=== PATIENT | female | born 1990 | race Caucasian/White ===

== ENCOUNTER 2016-08-22 13:00 | Inpatient (IN) | payer OTHER ==
--- NOTE | ~2016-08-22 | DS ---
Unit #: [id number] #: [id number] Patient: DANISH AGUIRRE [id number] [facility] [address] [place] [address] [id number] MR#: [id number] NAME: DANISH AGUIRRE ROOM: [facility] Age: 26 Sex: F Admission Date: 08/22/2016 : 1990 Discharge Date: 08/24/2016 Attending Physician: Peter Ellsworth M.D. Primary Care Physician: Primary Care Physician No DISCHARGE SUMMARY REASON FOR ADMISSION Addiction. DIAGNOSTIC STUDIES LABORATORY RESULTS: Urine toxicology was positive for benzodiazepine, amphetamine, and marijuana and also AST 295, ALT 232. Glucose 122. HOSPITAL COURSE The patient was admitted to inpatient unit on 08/22/2016 and discharged on 08/24/2016. The patient was treated with detox protocol and detox monitoring, chemical dependency group, structured milieu, psychoeducation. The patient was responsive to inpatient treatment. The patient was on numerous medication, but the last time she filled medication was 2 months ago. Therefore, no previous medication was started. The patient was somewhat drowsy and dizzy. On the medication, therefore decided not to start any medication at this time. The patient was on prazosin, olanzapine, gabapentin, Geodon, Latuda, sertraline, Topamax which she filled almost 2 months ago. The patient was not started on those medication and detox was completed. The patient received maximum benefit. Did not show any withdrawal symptom. Vital signs, stable. Subsequently, the patient was discharged with a plan to follow up in outpatient basis. The patient was not suicidal or homicidal, and advised to further adjustment of medication to be done on the outpatient basis. DISCHARGE MEDICATIONS None. DISCHARGE DIAGNOSES Psychiatric: Sedative hypnotic use disorder, severe, F13.20; amphetamine use disorder, severe, F15.20; cannabis abuse, moderate to severe, F12.20; mood disorder, not otherwise specified, F32.9. Secondary diagnosis: Deferred. Medical diagnosis: None. Stressors: Psychosocial stressors. DISCHARGE INSTRUCTIONS The patient to follow up in outpatient basis as per social welfare clerk. CONDITION ON DISCHARGE The patient was somewhat irritable, mad, angry but denied any suicidal or Unit #: [id number] #: [id number] Patient: DANISH AGUIRRE homicidal ideation. PROGNOSIS Guarded. DIET AND ACTIVITY As tolerated. The patient demanded prescription of medication, but advised that at this time, we will not give any prescription of her psychotropic medication and that needs to be decided on the outpatient basis when she comes for outpatient program or with the other psychiatrist. Dictated by... Amirah Xie/rah TD: 08/24/2016 19:56 JOB #: [id number] DISCHARGE SUMMARY Page 1 of 1 X Peter Ellsworth MD X DISCHARGE SUMMARY
--- NOTE | ~2016-08-22 | HP ---
Unit #: [id number] #: [id number] Patient: DANISH AGUIRRE [id number] [place] [address] [id number] I MR#: [id number] NAME: DANISH AGUIRRE ROOM: P212 Age: 26 Sex: F Admission Date: 08/22/2016 : 1990 Attending Physician: Peter Ellsworth M.D. Admitting Physician: Peter Ellsworth M.D. Primary Care Physician: Primary Care Physician No HISTORY AND PHYSICAL HISTORY OF PRESENT ILLNESS Danish is a 26 year old admitted to [address] [place] [address] because of her polysubstance abuse which includes IV heroin and benzodiazepines. PAST MEDICAL HISTORY 1. Long history of polysubstance abuse to include IV heroin. 2. Hepatitis C. 3. History of kidney stones. PAST SURGICAL HISTORY x2. ALLERGIES Penicillin. SOCIAL HISTORY Smokes one pack per day. Denies alcohol. Admits to a long history of poly illicit substance abuse to include IV heroin. FAMILY HISTORY Medically noncontributory. REVIEW OF SYSTEMS CONSTITUTIONAL: No fever or chills. HEENT: Denies any sore throat, ear pain or runny nose. CARDIOVASCULAR: Denies chest pain, irregular heart rhythm or palpitations. CHEST: Denies shortness of breath or cough. No hemoptysis. GASTROINTESTINAL: Denies nausea, vomiting, diarrhea or chronic constipation. ENDOCRINE: Denies history of increased thirst or urination. No recent significant weight loss or gain. GENITOURINARY: Denies dysuria, frequency, or hematuria. SKIN: Denies any rashes. HEMATOLOGIC: Denies history of increased bleeding or bruising. MUSCULOSKELETAL: Denies any hot, swollen joints. No generalized muscle pain. NEUROLOGIC: Denies problems with vision or speech. No frequent, severe headaches. No numbness, tingling or weakness in any extremities. Denies loss of bladder or bowel control. CURRENT MEDICATIONS Detox protocol Unit #: [id number] #: [id number] Patient: DANISH AGUIRRE PHYSICAL EXAMINATION GENERAL: Alert, petite, in no apparent distress. VITAL SIGNS: Blood pressure 126/82, heart rate 84, respirations 16, temperature 98.6. SKIN: Warm and dry without rash or lesion. HEENT: Normocephalic. TMs not viewed. Oral and nasal passages clear. Conjunctivae clear. Pupils equal, round and reactive to light and accommodation. Extraocular movements intact. NECK: Supple without lymphadenopathy or thyromegaly. HEART: Regular rate and rhythm without murmur. LUNGS: Clear. ABDOMEN: Soft, nontender. : Not done. EXTREMITIES: No evidence of cyanosis, clubbing or edema. Moves all extremities without focal deficit. NEUROLOGICAL: Grossly within normal limits. Cranial Nerves: II: Visual landry are intact. III, IV AND : Extraocular movements are intact. Pupils are equal, round and reactive to light. V: Facial sensation is grossly normal. VII: Facial movements and expression are normal. VIII: Auditory acuity grossly intact. IX, X: Uvula is midline. Phonation is normal. XI: Patient shrugs shoulders and turns head normally. XII: Tongue protrudes in the midline. Sensory and Motor Function: Sensory and motor sensation is grossly normal. Motor: moves all extremities well. Coordination: Gait is normal. Deep Tendon Reflexes: Intact. IMPRESSION Psychiatric admission RECOMMENDATIONS PSYCHIATRIC: Per psychiatrist. MEDICAL: I see no contraindications to participating in facility's activities. MEDICAL PROGNOSIS Good. MEDICAL CONDITION Stable. Dictated by... Julienne Wisdom PAzizaAFernanda. for Amirah Ibrahim/gloria TD: 08/23/2016 00:41 JOB #: [id number] Unit #: [id number] #: [id number] Patient: DANISH AGUIRRE HISTORY AND PHYSICAL Page 1 of 1 X Julienne Wisdom X HISTORY AND PHYSICAL
--- NOTE | ~2016-08-22 | PA ---
Unit #: [id number] #: [id number] Patient: DANISH AGUIRRE [id number] [facility] [address] [place] [address] [id number] I MR#: [id number] NAME: DANISH AGUIRRE ROOM: [facility] Age: 26 Sex: F Admission Date: 08/22/2016 : 1990 Date of Assessment: 08/23/2016 Attending Physician: Peter Ellsworth M.D. Admitting Physician: Peter Ellsworth M.D. Primary Care Physician: Primary Care Physician No PSYCHIATRIC ASSESSMENT INFORMANTS The patient's reliability fair; chart reliability, good. CHIEF COMPLAINT Addiction. HISTORY OF PRESENT ILLNESS Ms. Woods is a 26-year-old female, presented with the above-mentioned complaint. The patient has a history of [facility] , [facility]; inpatient rehab in 2002 to 2005, 26 times. The patient has a poor support system. Reported substance abuse and increased depressive symptom. The patient reported that using 1 g of heroin. The patient reported IV with the last use a day ago. The patient reported using 10 to 15 benzo daily. The patient reports having significant withdrawal symptom. COWS score 15. The patient reported having feeling of hopelessness and worthlessness, but denied any suicidal or homicidal ideation. Denied any psychotic symptom. Needing inpatient admission at this time for psychiatric stabilization. PAST PSYCHIATRIC HISTORY Remarkable for history of previous treatment in [place], details unknown at this time. FAMILY HISTORY AND SOCIAL HISTORY The patient has a poor support system. No history of abuse. History of alcoholism in father, bipolar disorder in grandmother, major depression in grandfather, depression in mother, schizophrenia in aunt. MEDICAL HISTORY Unremarkable for any chronic medical condition. Musculoskeletal; muscle strength and tone, no atrophy or abnormal movement. Gait normal. MEDICATION HISTORY The patient reports currently on prazosin 6 mg at bedtime, olanzapine 30 mg b.i.d., gabapentin 600 mg q.i.d., Geodon 40 mg daily, Latuda 60 mg daily, clonidine 0.1 mg at bedtime. According to the pharmacy, the patient has not filled these medication in the last 2 months, but has been abusing benzodiazepine. ALLERGIES No known drug allergies. SUBSTANCE ABUSE HISTORY Unit #: [id number] #: [id number] Patient: DANISH AGUIRRE Tobacco use, age of onset 11; marijuana, age of onset 10; opioid, age of onset 18; benzodiazepine, age of onset 12. The patient reported no blackout, HIV, hepatitis, or IV drug use. History of withdrawal symptoms such as abdominal cramping, muscle cramping, diarrhea, diaphoresis, headache, nervousness, sleep problem, tremor. MENTAL STATUS EXAMINATION CONSTITUTIONAL: Measurement of vital signs; temperature 97.3, pulse 111, respirations 17, blood pressure 115/75. Height 5 feet and weight 120 pounds. GENERAL APPEARANCE: The patient dressed casually. The patient did not show any facial deformity. MUSCULOSKELETAL: Please see above. PSYCHIATRIC EXAMINATION Description of speech; regular rate, normal volume, normal articulation. Description of thought process, goal directed. Description of association, intact. Description of abnormal psychotic thinking; the patient denied any hallucination or delusions, but somewhat guarded. Denied any suicidal or homicidal ideation. Description of the patient's judgment; concerning everyday activity, poor. Social situation, poor. Concerning psychiatric condition, poor. Complete mental status examination; oriented in time, place, and person. Recent and remote memory, fair. Attention span and concentration, fair. Language, able to name object and repeat phrases. Fund of knowledge, aware of current event and passive vocabulary intact. Mood and affect, sad and dysphoric. Insight and judgment, fair to poor. ASSETS AND LIABILITIES Assets, the patient articulate, able to take care of her ADL. Liability; history of depression, substance abuse. ADMITTING DIAGNOSES Psychiatric: Opioid use disorder, severe, F11.20; sedative hypnotic use disorder, F13.20; mood disorder, not otherwise specified, F32.9. Secondary diagnosis: Deferred. Medical diagnosis: None. Stressors: Psychosocial stressors. PSYCHIATRIC PLAN AND TREATMENT GOAL 1. Advised to admit the patient on the inpatient unit. Provide safe, supportive, and structured environment. 2. Ordered labs; CBC, CMP, UA, and UDS. 3. test. 4. The patient to attend all the programing on the inpatient unit and detox protocol and detox monitoring. Advised to hold home medication at this time as the patient has not taken these medication on the last 2 months and currently having withdrawal symptoms. Once the patient is detox, then consider medication. Treatment goal to attain euthymic mood, gain insight into her problem, and learn coping skills. DISCHARGE PLAN Plan to stabilize the patient and consider followup in outpatient program. Unit #: [id number] #: [id number] Patient: DANISH AGUIRRE ESTIMATED LENGTH OF STAY 3 to 5 days. Dictated by... Amirah Xie/rah TD: 08/23/2016 23:22 JOB #: [id number] PSYCHIATRIC ASSESSMENT Page 1 of 1 X Peter Ellsworth MD X PSYCHIATRIC ASSESSMENT
[2016-08-23 09:31] LABS: BASOPHIL% 0.3 % (0-2.5); EOSINOPHIL# 0.2 X10e3 (0-0.7); HEMOGLOBIN 15.5 gm/dL (12.0-16.0); LYMPHOCYTE# 1.9 X10e3 (1.0-3.5); LYMPHOCYTE% 36.9 % (17.0-45.0); MEAN CELL VOLUME 89.4 FL (83-96); MEAN CORPUSCULAR HEMOGLOBIN 30.2 PG (28-34); MEAN CORPUSCULAR HGB CONC 33.7 g/dL (30-36); MEAN PLATELET VOLUME 8.8 FL (6.5-11.5); MONOCYTE# 0.4 X10e3 (0-1.0); MONOCYTE% 8.1 % (3.0-12.0); NEUTROPHIL# 2.6 X10e3 (1.5-7.1); NEUTROPHIL% 51.7 % (40-75); PLATELET COUNT 187 X10e3 (140-420); RED BLOOD COUNT 5.15 X10e (3.90-5.30); RED CELL DISTRIBUTION WIDTH 13.8 % (11.0-15.5); WHITE BLOOD COUNT 5.1 X10e3 (4.0-10.5)
[2016-08-23 09:47] LABS: DIFF IND NO
[2016-08-23 09:51] LABS: URINE APPEARANCE CLOUDY; URINE BLOOD NEG (NEG); URINE COLOR DK YELLOW; URINE GLUCOSE NEG (NEG); URINE KETONE TRACE (NEG); URINE LEUKOCYTE ESTERASE 2+ (NEG); URINE NITRATE NEG (NEG); URINE PH 8.5 (5-8); URINE PROTEIN TRACE (NEG); URINE SPECIFIC GRAVITY 1.022 (1.003-1.035)
[2016-08-23 09:54] LABS: URINE BACTERIA AUWI 1+ (NEGATIVE); URINE SQUAMOUS EPITHELIAL CELL FEW /[HPF]
[2016-08-23 10:00] LABS: URINE BILIRUBIN NEG (NEG)
[2016-08-23 10:18] LABS: AMPHETAMINE POS (NEG); BARBITURATES NEG (NEG); BENZODIAZEPINES POS (NEG); COCAINE NEG (NEG); MARIJUANA POS (NEG); OPIATES NEG (NEG); TRICYCLIC ANTIDEPRESSANTS NEG (NEG); U METHADONE NEG (NEG)
[2016-08-23 10:38] LABS: ALBUMIN SERUM 4.5 g/dL (3.5-5.0); BILIRUBIN,TOTAL 1.2 mg/dL (0.2-2.0); BUN/CREATININE RATIO 11.11; CALCIUM SERUM 10.3 mg/dL (8.4-10.2); CREATININE SERUM 0.9 mg/dL (0.6-1.4); GLOM FILT RATE Estimated 87.7 mL/min (>60); POTASSIUM 3.5 mmol/L (3.5-5.1)
== END 2016-08-24 09:42 | disposition home or self-care (01) | DRG 897 ==
LOC: P2S 15:57
PROVIDERS: Psychiatry & Neurology Psychiatry
PROC: HZ2ZZZZ Detoxification Services for Substance Abuse Treatment (ICD-10-PCS; principal; 2016-08-22)
DX: F11.20 Opioid dependence, uncomplicated (principal); F13.20 Sedative, hypnotic or anxiolytic dependence, uncomplicated; F39 Unspecified mood [affective] disorder; Z81.8 Family history of other mental and behavioral disorders; Z81.1 Family history of alcohol abuse and dependence; Z88.0 Allergy status to penicillin; Z87.442 Personal history of urinary calculi; F17.210 Nicotine dependence, cigarettes, uncomplicated; Z86.19 Personal history of other infectious and parasitic diseases
CPT/HCPCS: 80053; 80307; 81003; 85025

== ENCOUNTER 2016-10-10 16:46 | Inpatient (IN) | payer OTHER ==
[~2016-10-10] VITALS: Ht 152.4 cm; Wt 59.0 kg
--- NOTE | ~2016-10-10 | HP ---
Unit #: [id number] #: [id number] Patient: DANISH AGUIRRE [id number] [place] [address] [id number] I MR#: [id number] NAME: DANISH AGUIRRE ROOM: P209 Age: 26 Sex: F Admission Date: 10/10/2016 : 1990 Attending Physician: Peter Ellsworth M.D. Admitting Physician: Peter Ellsworth M.D. Primary Care Physician: Primary Care Physician No HISTORY AND PHYSICAL HISTORY OF PRESENT ILLNESS Danish is a 26 year old admitted to [address] [place] [address] because of her continued polysubstance abuse which includes IV heroin and benzodiazepines. She has had other admissions to this facility for treatment of the same. PAST MEDICAL HISTORY 1. Long history of polysubstance abuse to include IV heroin. 2. Hepatitis C. 3. History of kidney stones. PAST SURGICAL HISTORY x2. ALLERGIES Penicillin. SOCIAL HISTORY Smokes one pack per day. Denies alcohol. Admits to long history of poly-illicit substance abuse to include IV heroin. FAMILY HISTORY Medically noncontributory. REVIEW OF SYSTEMS CONSTITUTIONAL: No fever or chills. HEENT: Denies any sore throat, ear pain or runny nose. CARDIOVASCULAR: Denies chest pain, irregular heart rhythm or palpitations. CHEST: Denies shortness of breath or cough. No hemoptysis. GASTROINTESTINAL: Denies nausea, vomiting, diarrhea or chronic constipation. ENDOCRINE: Denies history of increased thirst or urination. No recent significant weight loss or gain. GENITOURINARY: Denies dysuria, frequency, or hematuria. SKIN: Denies any rashes. HEMATOLOGIC: Denies history of increased bleeding or bruising. MUSCULOSKELETAL: Denies any hot, swollen joints. No generalized muscle pain. NEUROLOGIC: Denies problems with vision or speech. No frequent, severe headaches. No numbness, tingling or weakness in any extremities. Denies loss of bladder or bowel control. CURRENT MEDICATIONS 1. Detox protocol. Unit #: [id number] #: [id number] Patient: DANISH AGUIRRE 2. Minipress 2 mg q.h.s. 3. Zyprexa 10 mg b.i.d. PHYSICAL EXAMINATION GENERAL: Alert, well nourished. No apparent distress. VITAL SIGNS: Blood pressure 110/66, heart rate 88, respirations 16, and temperature 98.6. WEIGHT: 130. HEIGHT: 5 feet 0 inches. SKIN: Warm and dry without rash or lesion. HEENT: Normocephalic. TMs not viewed. Oral and nasal passages clear. Conjunctivae clear. PERRLA. EOMs intact. NECK: Supple without lymphadenopathy or thyromegaly. HEART: Regular rate and rhythm without murmur. LUNGS: Clear. ABDOMEN: Soft, nontender. : Not done. EXTREMITIES: No evidence of cyanosis, clubbing or edema. Moves all without focal deficit. NEUROLOGICAL: Grossly within normal limits. Cranial Nerves: II: Visual landry are intact. III, IV AND : Extraocular movements are intact. Pupils are equal, round and reactive to light. V: Facial sensation is grossly normal. VII: Facial movements and expression are normal. VIII: Auditory acuity grossly intact. IX, X: Uvula is midline. Phonation is normal. XI: Patient shrugs shoulders and turns head normally. XII: Tongue protrudes in the midline. Sensory and Motor Function: Sensory and motor sensation is grossly normal. Motor: moves all extremities well. Coordination: Gait is normal. Deep Tendon Reflexes: Intact. IMPRESSION Psychiatric admission. RECOMMENDATIONS PSYCHIATRIC: Per psychiatrist. MEDICAL: I see no contraindication to participate in this facility's activities. MEDICAL PROGNOSIS Good. MEDICAL CONDITION Stable. Dictated by... Julienne Wisdom P.A.-C. for Amirah Ibrahim/sebas TD: 10/11/2016 12:41 JOB #: [id number] Unit #: [id number] #: [id number] Patient: DANISH AGUIRRE HISTORY AND PHYSICAL Page 1 of 1 X Julienne Wisdom HISTORY AND PHYSICAL
--- NOTE | ~2016-10-10 | PN ---
Unit #: [id number] #: [id number] Patient: DANISH AGUIRRE [id number] [facility] [address] [place] [address] [id number] MR#: [id number] NAME: DANISH AGUIRRE ROOM: P209 Age: 26 Sex: F Admission Date: 10/10/2016 : 1990 Attending Physician: Peter Ellsworth M.D. Admitting Physician: Peter Ellsworth M.D. Primary Care Physician: Primary Care Physician Pilar CHAPARRO PROGRESS NOTES DATE OF SERVICE 10/11/2016 DISCUSSION Ms. Woods is a 26-year-old female seen on 10/11/2016. The patient interviewed, chart reviewed. Obtained information from nursing staff. The patient reported that she was on Zyprexa and having a lot of problems and nightmares, trouble sleeping, mood lability, paranoia, withdrawal symptom. Complete Review of Systems: Unremarkable. MENTAL STATUS EXAMINATION General Appearance: The patient dressed casually. Attention span, concentration: Fair. The patient's vital signs: 98.5, 93, 20, 127/84. Attention span, concentration: Fair. Oriented in time, place, and person. Mood and affect labile. Sad, dysphoric, anxious. Thought process: Goal-directed. The patient reported suicidal ideation. Passive, guarded, withdrawn. Recent and remote memory: Poor. Insight and judgment: Poor. DIAGNOSES 1. Major depressive disorder, recurrent, severe. 2. Opiate use disorder, severe. 3. Sedative hypnotic use disorder, severe. ASSESSMENT/PLAN Advised to continue with current medication and therapeutic protocol. If needed, consider further adjustment of medication. Dictated by... Amirah Xie/sebas TD: 10/12/2016 11:45 JOB #: [id number] Unit #: [id number] #: [id number] Patient: DANISH AGUIRRE [facility] PROGRESS NOTES Page 1 of 1 X Peter Ellsworth MD PROGRESS NOTE
--- NOTE | ~2016-10-10 | DS ---
Unit #: [id number] #: [id number] Patient: DANISH AGUIRRE [id number] [facility] [address] [place] [address] [id number] I MR#: [id number] NAME: DANISH AGUIRRE ROOM: [facility] Age: 26 Sex: F Admission Date: 10/10/2016 : 1990 Discharge Date: 10/12/2016 Attending Physician: Peter Ellsworth M.D. Primary Care Physician: Primary Care Physician No DISCHARGE SUMMARY REASON FOR ADMISSION Depression, suicidal ideation, substance abuse. DIAGNOSTIC STUDIES LABORATORY RESULTS: Urine drug screen positive for benzodiazepine, marijuana. HOSPITAL COURSE The patient was admitted to inpatient unit on 10/10/2016 and discharged on 10/12/2016. The patient was treated with chemical dependency group, expressive therapy, medication management, psychoeducation, psychotherapy, structured milieu. The patient denied any suicidal ideation wanted to followup in outpatient program. Patient was subsequently discharged with a plan to followup in outpatient program. DISCHARGE MEDICATIONS 1. Minipress 2 mg daily for nightmares 2. Zyprexa 10 mg in the morning and 20 mg at bedtime for mood stabilization. 3. Cogentin 1 mg at bedtime for EPS symptom. 4. Prozac 20 mg daily for depression. DISCHARGE DIAGNOSES PSYCHIATRIC: 1. Major depressive disorder recurrent severe F33.2. 2. Rule out bipolar mood disorder. 3. Opioid use disorder severe F11.20. 4. Sedative hypnotic use disorder, severe, F13.20. SECONDARY DIAGNOSIS Deferred. MEDICAL DIAGNOSIS Hepatitis C. STRESSORS Psychosocial stressors. INSTRUCTION TO PATIENT The patient to follow up in outpatient program as per health social work professor. CONDITION ON DISCHARGE Unit #: [id number] #: [id number] Patient: DANISH AGUIRRE The patient pleasant, cooperative, denied any psychotic symptom or any suicidal ideation. PROGNOSIS Guarded. DIET AND ACTIVITY As tolerated. Dictated by... Amirah Xie/gloria TD: 10/13/2016 05:43 JOB #: [id number] DISCHARGE SUMMARY Page 1 of 1 X Peter Ellsworth MD X DISCHARGE SUMMARY
--- NOTE | ~2016-10-10 | PA ---
Unit #: [id number] #: [id number] Patient: DANISH AGUIRRE [id number] [facility] [address] [place] [address] [id number] MR#: [id number] NAME: DANISH AGUIRRE ROOM: P209 Age: 26 Sex: F Admission Date: 10/10/2016 : 1990 Date of Assessment: 10/11/2016 Attending Physician: Peter Ellsworth M.D. Admitting Physician: Peter Ellsworth M.D. Primary Care Physician: Primary Care Physician No PSYCHIATRIC ASSESSMENT INFORMANT The patient reliability, fair informant; chart reliability, good. CHIEF COMPLAINT Depression. HISTORY OF PRESENT ILLNESS Ms. Woods is a 46-year-old white female, seen on , admitted on October 10, 2016. The patient reports that her boyfriend of heroin overdose a couple of weeks ago. The patient reports that we had a pact that if one the other would do accidental overdose. We were supposed to go to rehab next week. I am going off from benzo right now. The patient reported that she was using benzodiazepine as well as opiates. The patient reported feeling sad, depressed, feeling of hopelessness. The patient is currently unemployed, completed high school. Reports currently homeless. Reports staying with boyfriend's mother house. The patient's boyfriend on 10/07/2016 from heroin overdose. The patient has no income. Has history of hepatitis. The patient mother lives in [place]. The patient has not been attending to meetings and does not have any sponsor. The patient reported feeling sad, depressed, feeling of hopelessness, decreased sleep, decreased appetite, needing inpatient admission at this time for psychiatric stabilization. PAST PSYCHIATRIC HISTORY Remarkable for history of previous treatment at [facility] on 08/30/2016, [place]. FAMILY HISTORY AND SOCIAL HISTORY The patient has a poor support system. Reports currently homeless. No history of abuse. No legal charges. MEDICAL HISTORY Remarkable for history of hepatitis C. Musculoskeletal; Muscle strength and tone, no atrophy or abnormal movement. Gait normal. MEDICATION HISTORY None. ALLERGIES No known drug allergies. SUBSTANCE ABUSE HISTORY The patient reported tobacco use, age of onset 11; marijuana, age of onset Unit #: [id number] #: [id number] Patient: DANISH AGUIRRE 10; opioid, age of onset 18; benzodiazepine, age of onset 12. Longest period of sobriety 60 days, last period of sobriety 1 year ago. The patient reported history of blackout, hepatitis, withdrawal symptom, IV drug use. Currently, having insomnia, hallucination, chills, nausea, diarrhea, sweating. REVIEW OF SYSTEMS HEENT: Eyes, clear. Ears, nose, mouth, and throat are clear. CARDIOVASCULAR: Unremarkable. GI: Unremarkable. : Unremarkable. SKIN: Unremarkable. LYMPH NODE: Unremarkable. NEUROLOGIC: Unremarkable. ENDOCRINE: Unremarkable. HEMATOLOGIC: Unremarkable. ALLERGIC/IMMUNOLOGIC: Unremarkable. MUSCULOSKELETAL: Muscle strength and tone, no atrophy or abnormal movement. Gait normal. MENTAL STATUS EXAMINATION CONSTITUTIONAL: Measurement of vital signs; temperature 98.0, 89, 20, 103/66. Height 5 feet 3 inches, weight 130 pounds. General appearance; the patient dressed casually. The patient did not show any facial deformity. MUSCULOSKELETAL: Please see above. PSYCHIATRIC EXAMINATION Description of speech is regular rate. Description of thought process, goal directed. Description of association, intact. Description of abnormal psychotic thinking; denied any hallucination or delusions, but depression, substance abuse, suicidal ideation. Description of patient's judgment, concerning everyday activity, poor. Social situation, poor. Concerning psychiatric condition, poor. Complete mental status examination; oriented in time, place, and person. Recent and remote memory, fair. Attention span and concentration, fair. Language, able to name object and repeat phrases. Fund of knowledge, aware of current event and passive vocabulary intact. Mood and affect, sad and dysphoric. Insight and judgment, fair to poor. ASSETS AND LIABILITIES Assets, the patient is articulate and able to take care of her ADL. Liability, history of depression and substance abuse. ADMITTING DIAGNOSES Psychiatric: Major depressive disorder, recurrent, severe, F33.2. Opioid use disorder, severe, F11.20. Sedative hypnotic use disorder, F13.20. Secondary diagnosis: Deferred. Medical diagnosis: Hepatitis C. Stressors: Psychosocial stressor. PSYCHIATRIC PLAN AND TREATMENT GOAL AND DISCHARGE PLAN 1. Advised to admit the patient on the inpatient unit. Provide safe, supportive, and structured environment. Unit #: [id number] #: [id number] Patient: DANISH AGUIRRE 2. Ordered labs; CBC, CMP, UA, and UDS. 3. Detox protocol and detox monitoring. Plan to consider medication for depression such as SSRI. The patient to attend group therapy, individual therapy, chemical dependency group. Treatment goal to attain euthymic mood, gain insight into her problem, and learn coping skills. DISCHARGE PLAN Plan to stabilize the patient and consider followup in outpatient program. ESTIMATED LENGTH OF STAY 3-5 days. Dictated by... Peter Ellsworth M.D. RHODA/rah TD: 10/12/2016 02:51 JOB #: [id number] PSYCHIATRIC ASSESSMENT Page 1 of 1 X Peter Ellsworth MD X PSYCHIATRIC ASSESSMENT
[2016-10-11 09:45] LABS: BASOPHIL% 0.7 % (0-2.5); EOSINOPHIL# 0.2 X10e3 (0-0.7); EOSINOPHIL% 2.8 % (0.0-7.0); HEMATOCRIT 42.2 % (35.0-45.0); LYMPHOCYTE# 1.8 X10e3 (1.0-3.5); LYMPHOCYTE% 27.7 % (17.0-45.0); MEAN CELL VOLUME 89.6 FL (83-96); MEAN CORPUSCULAR HEMOGLOBIN 29.8 PG (28-34); MEAN CORPUSCULAR HGB CONC 33.3 g/dL (30-36); MEAN PLATELET VOLUME 8.5 FL (6.5-11.5); MONOCYTE# 0.6 X10e3 (0-1.0); MONOCYTE% 8.9 % (3.0-12.0); NEUTROPHIL% 59.9 % (40-75); PLATELET COUNT 232 X10e3 (140-420); RED BLOOD COUNT 4.71 X10e (3.90-5.30); RED CELL DISTRIBUTION WIDTH 14.6 % (11.0-15.5); WHITE BLOOD COUNT 6.6 X10e3 (4.0-10.5)
[2016-10-11 09:55] LABS: DIFF IND NO
[2016-10-11 10:16] LABS: ALBUMIN SERUM 3.9 g/dL (3.5-5.0); BILIRUBIN,TOTAL 0.8 mg/dL (0.2-2.0); CALCIUM SERUM 9.8 mg/dL (8.4-10.2); GLOM FILT RATE Estimated 77.2 mL/min (>60); POTASSIUM 4.5 mmol/L (3.5-5.1)
[2016-10-12 12:56] LABS: AMPHETAMINE NEG (NEG); BARBITURATES NEG (NEG); BENZODIAZEPINES POS (NEG); COCAINE NEG (NEG); MARIJUANA POS (NEG); OPIATES NEG (NEG); TRICYCLIC ANTIDEPRESSANTS NEG (NEG); U METHADONE NEG (NEG)
[2016-10-12 14:08] LABS: URINE APPEARANCE CLEAR; URINE BILIRUBIN NEG (NEG); URINE BLOOD NEG (NEG); URINE COLOR YELLOW; URINE GLUCOSE NORM (NORM); URINE KETONE NEG (NEG); URINE LEUKOCYTE ESTERASE NEG (NEG); URINE NITRATE NEG (NEG); URINE PROTEIN NEG (NEG); URINE SPECIFIC GRAVITY 1.015 (1.003-1.035); URINE UROBILINOGEN NORM (NORM)
== END 2016-10-12 13:49 | disposition home or self-care (01) | DRG 885 ==
LOC: P2S 20:13
PROVIDERS: Psychiatry & Neurology Psychiatry
PROC: HZ2ZZZZ Detoxification Services for Substance Abuse Treatment (ICD-10-PCS; principal; 2016-10-10)
DX: F33.1 Major depressive disorder, recurrent, moderate (principal); F11.20 Opioid dependence, uncomplicated; F13.20 Sedative, hypnotic or anxiolytic dependence, uncomplicated; Z87.442 Personal history of urinary calculi; Z88.0 Allergy status to penicillin
CPT/HCPCS: 80053; 80307; 81003; 84703; 85025; 86592